=== PATIENT | male | born 1990 | race Caucasian/White ===

== ENCOUNTER 2017-09-26 11:10 | Emergency (ER) | payer OTHER ==
[~2017-09-26] VITALS: Ht 172.7 cm; Wt 73.3 kg
[~2017-09-26 11:10] MED LIST: ascorbic acid PO
[2017-09-26 11:12] VITALS: TEMP 36.8; Ht 172.7 cm; Wt 73.3 kg
--- NOTE | 2017-09-26 11:36 | EMERGENCY ROOM VISIT NOTE ---
History Report prepared by Melissa: Rafael Nelson Under the Supervision of: Dr. Gilbert Mtz M.D. First contact with patient: 11:14 Chief Complaint: REFERRED BY DOCTOR Stated Complaint: SORENESS IN LEFT LEG History of Present Illness The majority of this history was acquired from the mother as the patient is deaf. The patient is a 26 year old male who presents to the Emergency Room with complaints of pain in the left leg. The mother notes that the patient has been complaining of pain in the left calf for the past "couple of weeks." The symptoms have been seeming to wax and wane, but there was an acute worsening over the past 2 days. He describes the pain as a "soreness." The patient denies any injuries to the leg but notes that he went rafting with some friends and had the left leg hanging over the edge of the raft for an extended time. The patient denies any chest pain, shortness of breath, headache, or fevers. Source of History: patient Onset: 2 weeks Position: leg (left) Quality: other (Soreness) Timing: waxes/wanes, worsening Associated Symptoms: No chest pain, No SOB Review of Systems See HPI for pertinent positives & negatives. A total of 10 systems reviewed and were otherwise negative. Past Medical & Surgical Medical Problems: (1) Hearing impaired with cochlear implant Old medical records were reviewed. Nurse's notes were reviewed and I agree with. Family History Father has Factor X Leiden. Social History Smoking Status: Never Smoker Marital Status: single Current/Historical Medications No Active Prescriptions or Reported Meds Allergies Coded Allergies: No Known Allergies (Unverified , 09/26/17) Physical Exam Vital Signs Date Time Temp Pulse Resp B/P (MAP) Pulse Ox O2 Delivery O2 Flow Rate FiO2 09/26/17 13:01 56 18 140/76 97 Room Air 09/26/17 11:12 36.8 64 18 102/68 100 Room Air Physical Exam General: Non-ill appearing young male in no acute distress. HEENT: Normal cephalic atraumatic. Pupils are equal round and reactive to light. Extraocular movements are intact. Oropharynx is pink with moist mucous membranes. No swelling of the mouth lips or tongue. Neck: Supple with a midline trachea. No meningeal signs or stiffness, no JVD or bruits. No Stridor. Chest: Clear to auscultation bilaterally. No wheezes or rhonchi. No increased work of breathing. Heart: regular rate and rhythm. Abdomen: Soft nontender, nondistended without rebound guarding or rigidity. Extremities: The left calf is mildly tender proximally near the popliteal fossa , no redness or warmth. Normal pulses and motor sensation in the foot. Spine/Back. Non tender to palpation. No CVA tenderness Skin: Good turgor without rashes. Neurologic exam: Cranial nerves two through 12 are intact. Motor and sensation are intact and symmetrical throughout. Medical Decision & Procedures ER Provider Diagnostic Interpretation: Radiology results as stated below per my review and radiologist interpretation: LEFT LOWER EXTREMITY VENOUS DOPPLER HISTORY: Left leg swelling. eval for DVT COMPARISON STUDY: None. FINDINGS: There is normal compressibility, flow, and augmentation within the left lower extremity deep venous system. There is thrombus seen within the lesser saphenous vein within the calf. This is consistent with a superficial vein. IMPRESSION: No DVT within the left lower extremity. Thrombus within the lesser saphenous vein within the calf consistent with a superficial vein. Electronically signed by: Harpreet Ramirez M.D. 09/26/2017 12:43 PM Dictated Date/Time: 09/26/2017 12:42 PM Laboratory Results 09/26/17 11:35 Red Blood Count 5.66, Mean Corpuscular Volume 85.0, Mean Corpuscular Hemoglobin 31.1, Mean Corpuscular Hemoglobin Concent 36.6, Mean Platelet Volume 8.9, Neutrophils (%) (Auto) 64.2, Lymphocytes (%) (Auto) 26.7, Monocytes (%) (Auto) 5.5, Eosinophils (%) (Auto) 3.0, Basophils (%) (Auto) 0.4, Neutrophils # (Auto) 3.59, Lymphocytes # (Auto) 1.49, Monocytes # (Auto) 0.31, Eosinophils # (Auto) 0.17, Basophils # (Auto) 0.02 09/26/17 11:35 Test 09/26/17 11:35 White Blood Count 5.59 K/uL (4.8-10.8) Red Blood Count 5.66 M/uL (4.7-6.1) Hemoglobin 17.6 g/dL (14.0-18.0) Hematocrit 48.1 % (42-52) Mean Corpuscular Volume 85.0 fL (80-100) Mean Corpuscular Hemoglobin 31.1 pg (25-34) Mean Corpuscular Hemoglobin Concent 36.6 g/dl (32-36) Platelet Count 215 K/uL (130-400) Mean Platelet Volume 8.9 fL (7.4-10.4) Neutrophils (%) (Auto) 64.2 % Lymphocytes (%) (Auto) 26.7 % Monocytes (%) (Auto) 5.5 % Eosinophils (%) (Auto) 3.0 % Basophils (%) (Auto) 0.4 % Neutrophils # (Auto) 3.59 K/uL (1.4-6.5) Lymphocytes # (Auto) 1.49 K/uL (1.2-3.4) Monocytes # (Auto) 0.31 K/uL (0.11-0.59) Eosinophils # (Auto) 0.17 K/uL (0-0.5) Basophils # (Auto) 0.02 K/uL (0-0.2) RDW Standard Deviation 40.7 fL (36.4-46.3) RDW Coefficient of Variation 13.1 % (11.5-14.5) Immature Granulocyte % (Auto) 0.2 % Immature Granulocyte # (Auto) 0.01 K/uL (0.00-0.02) Prothrombin Time 10.1 SECONDS (9.0-12.0) Prothromb Time International Ratio 1.0 (0.9-1.1) Activated Partial Thromboplast Time 24.6 SECONDS (21.0-31.0) Partial Thromboplastin Ratio 0.9 Anion Gap 4.0 mmol/L (3-11) Est Creatinine Clear Calc Drug Dose 115.2 ml/min Estimated GFR () 129.2 Estimated GFR (Non- 111.5 BUN/Creatinine Ratio 10.4 (10-20) Calcium Level 9.4 mg/dl (8.5-10.1) Laboratory studies as stated above per my review. Medications Administered Medications (Trade) Dose Ordered Sig/Jac Route Start Time Stop Time Status Last Admin Dose Admin Aspirin (Aspirin Chew) 324 mg NOW STAT PO 09/26/17 13:10 09/26/17 13:11 DC 09/26/17 13:10 324 MG ED Course 1115: Past medical records reviewed. The patient was evaluated in room A10, and a complete history and physical examination were performed. 1310: Ordered Aspirin 324 mg PO. 1318: Upon reevaluation, the patient is resting in bed. I discussed the results and treatment plan with him. He verbalized agreement of the treatment plan. The patient was discharged home. Medical Decision Differential Diagnosis includes; DVT, Singh's Cyst, musculoskeletal, infection. This patient comes in as described above. He was placed in room A-10. He has been having pain in his left posterior leg in the proximal calf about 2 weeks, it comes and goes. No known injury. He is asymptomatic otherwise. He has had no chest pain, shortness breath, or fever chills. On exam, there is no redness or warmth or anything to suggest cellulitis. He is distally neurovascularly intact. there is nothing to suggest compartment syndrome. IV access established blood work was obtained he also did an ultrasound to rule out DVT. He was reassessed frequently I discussed his care with his mother who is at the bedside as well. There is no white count or fever to suggest infection and clinically he does not appear to be infected. He has normal renal function. Nothing to suggest diabetes. Ultrasound shows no evidence of DVT. There is a clot in the superficial vein consistent with superficial thrombophlebitis. He will use warm compresses. I will also have him use aspirin for anti- inflammatory effect and also given his family history of factor V Leiden. He should take this with food as it can be hard in the stomach. Follow-up with the [facility] this coming week and if the symptoms persist he may need a further ultrasound. I also recommend he get genetic testing for factor V Leiden. He should return if: increasing pain or swelling, shortness of breath, fever or chills, any new problems or concerns. The patient and his mother are happy the plan and he was discharged to home. Medication Reconcilliation Current Medication List: was personally reviewed by me Blood Pressure Screening Patient's blood pressure: Normal blood pressure Impression Primary Impression: Superficial thrombophlebitis Additional Impression: Pain of left calf Scribe Attestation The scribe's documentation has been prepared under my direction and personally reviewed by me in its entirety. I confirm that the note above accurately reflects all work, treatment, procedures, and medical decision making performed by me. Departure Information Dispostion Home / Self-Care Prescriptions No Active Prescriptions or Reported Meds Referrals No Doctor, Assigned (PCP) Forms HOME CARE DOCUMENTATION FORM, IMPORTANT VISIT INFORMATION, WORK / SCHOOL INSTRUCTIONS Patient Instructions My [facility] HASH Additional Instructions Rest. Drink plenty of fluids. Use a warm compress. Take an aspirin a day 325 mg until you follow-up with your doctor this coming week. Take with food Follow-up with the [facility] this week You may want to consider getting tested for factor V Leiden as well as it runs in the family Return to the ER if: Increasing pain or swelling, redness or warmth, shortness of breath, any new problems or concerns. Problem Qualifiers
[2017-09-26 11:49] LABS: BASO % 0.4 %; BASO ABS # 0.02 K/uL (0-0.2); EOS ABS # 0.17 K/uL (0-0.5); HEMATOCRIT 48.1 % (42-52); HEMOGLOBIN 17.6 g/dL (14.0-18.0); IG# 0.01 K/uL (0.00-0.02); LYMPH % 26.7 %; LYMPH ABS # 1.49 K/uL (1.2-3.4); MEAN CORPUSCULAR HEMOGLOBIN 31.1 pg (25-34); MEAN CORPUSCULAR HGB CONC 36.6 g/dl (32-36); MEAN PLATELET VOLUME 8.9 fL (7.4-10.4); MONO % 5.5 %; MONO ABS # 0.31 K/uL (0.11-0.59); NEUT % 64.2 %; NEUT ABS # 3.59 K/uL (1.4-6.5); PLATELET COUNT 215 K/uL (130-400); RED CELL DISTRIBUTION WIDTH CV 13.1 % (11.5-14.5); RED CELL DISTRIBUTION WIDTH SD 40.7 fL (36.4-46.3); WHITE BLOOD COUNT 5.59 K/uL (4.8-10.8)
[2017-09-26 11:58] LABS: PTT PATIENT 24.6 SECONDS (21.0-31.0)
[2017-09-26 12:10] LABS: CALCIUM 9.4 mg/dl (8.5-10.1); CREATININE 0.94 mg/dl (0.60-1.40)
--- NOTE | 2017-09-26 12:45 | DIAGNOSTIC IMAGING REPORT ---
LEFT LOWER EXTREMITY VENOUS DOPPLER HISTORY: Left leg swelling. eval for DVT COMPARISON STUDY: None. FINDINGS: There is normal compressibility, flow, and augmentation within the left lower extremity deep venous system. There is thrombus seen within the lesser saphenous vein within the calf. This is consistent with a superficial vein. IMPRESSION: No DVT within the left lower extremity. Thrombus within the lesser saphenous vein within the calf consistent with a superficial vein. Electronically signed by: Harpreet Ramirez M.D. 09/26/2017 12:43 PM Dictated Date/Time: 09/26/2017 12:42 PM
[2017-09-26 13:01] VITALS: BP 140/76; PULSE 56; O2SAT 97
[2017-09-26] MEDS ORDERED: ASPIRIN 81 MG CHEW PO STA (13:10)
== END 2017-09-26 13:21 | disposition home or self-care (01) ==
LOC: C.EDB 11:10 → C.EDA 13:21
DX: I80.02 Phlebitis and thrombophlebitis of superficial vessels of left lower extremity (principal); M79.662 Pain in left lower leg

== ENCOUNTER 2024-12-04 14:18 | Observation (INO) ==
[2024-12-04 15:21] LABS: Hematocrit (blood only) 47.3 % (42.0-52.0); Hemoglobin 16.1 g/dl (14.0-18.0); Immature Granulocytes # (auto) 0.04 K/uL (0.01-0.20); Immature Granulocytes % (auto) 0.7 %; Mean Corpuscular Hemoglobin 28.9 pg (25.0-34.0); Mean Corpuscular Volume 84.9 fL (80.0-100.0); Platelet Count 260 K/uL (130-400); RDW Standard Deviation 39.6 fL (36.4-46.3); Red Blood Count 5.57 M/uL (4.70-6.10); White Blood Count 6.12 K/ul (4.8-10.8)
[2024-12-04] MEDS: OPTIRAY 320 125ml IV ONE (15:30)
[2024-12-04 15:36] LABS: Anion Gap 9.0 (3-11); Blood Urea Nitrogen 11.0 mg/dl (6-23); Calcium 10.1 mg/dl (8.6-10.3); Carbon Dioxide 28.0 mmol/L (21-32); Chloride 102.0 mmol/L (98-107); Glucose 152.0 mg/dl (70-99(Fasting)); Lipase 11.0 U/L (11-82); Potassium 3.9 mmol/L (3.5-5.1); Sodium 139.0 mmol/L (136-145)
--- NOTE | 2024-12-04 15:46 | CT Scan Report ---
CT ANGIOGRAM OF THE CHEST CLINICAL HISTORY: Chest pain. COMPARISON STUDY: Chest x-ray dated 07/06/2012. Chest CT dated 07/06/2012. TECHNIQUE: Following the IV administration of 118 cc of Optiray 320, CT angiogram of the chest was pe rformed from the upper abdomen to the thoracic inlet utilizing the pulmonary embolus protocol. Images are reviewed in the axial, sagittal, and coronal planes. 3-D MIPS images are created and assessed. I V contrast was administered without complication. A dose lowering technique was utilized adhering to the principles of ALARA. The examination is degraded by motion artifact. CT DOSE: 556.69 mGy.cm FINDINGS: Thyroid: Imaged portions of the thyroid gland are normal in size and attenuation. Thoracic aorta: The thoracic aorta is normal in caliber and demonstrates standard 3-vessel arch anato my. No dissection is seen. Pulmonary vasculature: The pulmonary trunk is normal in caliber. There are no central filling defects identified in main or lobar pulmonary branches to suggest pulmonary embolus. The segmental and subse gmental branches cannot be assessed due to severe motion artifact. Heart: The heart is normal in size and without pericardial effusion. Lungs and pleural spaces: Evaluation of the lung parenchyma is significantly degraded by motion artif act. No airspace consolidation or pleural effusion is identified. The trachea and central airways valentina ear clear. Atelectasis is noted at the lung bases. There are several calcified granulomas. Mediastinum: There is no mediastinal lymphadenopathy. Oliva: Clear. Axillae: There is no axillary lymphadenopathy. Upper abdomen: Partially visualized upper abdominal viscera is within normal limits. Skeletal structures: No lytic or blastic bony lesions are seen. IMPRESSION: 1. Severely motion compromised examination. 2. There is no evidence of central pulmonary embolus in the main or lobar pulmonary arteries. The seg mental and subsegmental branches cannot be assessed due to the degree of motion 3. No airspace consolidation or pleural effusion is identified. 4. Additional findings as above. ACT 112: Negative or not required by law. Electronically signed by: Adalberto Doe M.D. 12/04/2024 3:45 PM
[2024-12-04 15:48] LABS: INR 0.9 (0.9-1.1); Partial Thromboplastin Time 23 Seconds (21-31); Prothrombin Time 10.0 Seconds (9.0-12.0)
[2024-12-04 16:01] LABS: Creatinine Clr Calc Pharmacy 121.0 ml/min
--- NOTE | 2024-12-04 16:11 | History & Physical Report ---
<Statement entered by Bennie Augustin, DO - 12/06/24 09:14> Late note: I have seen and examined the patient and have discussed the case with the advance practice provider on the day of admission. I have reviewed the advanced practitioner's documentation, and I agree with, and take responsibility for that plan of care. History obtained from his mother at the bedside. Seems as though patient has been having swelling and pain in the left leg for a few months. Ultrasound lower extremity done in outpatient setting. Patient's father has hypercoagulable state. Send hypercoagulable state panel Transition to Eliquis. Did discuss with the patient's mother pros and cons of Eliquis versus warfarin. The patient's father was on warfarin. Mother was agreeable to at least the first month of Eliquis and determining if they would want to continue that medication versus transition to warfarin. They may need to apply for supervisor fusing room assistance for cost of Eliquis. However, between lab costs for warfarin the cost may be somewhat equivalent I spent a total of 20 minutes coordinating, documenting, and providing care for this patient excluding time spent by another provider/QHP. Date of Service December 04, 2024 Assessment & Plan (1) DVT (deep venous thrombosis): Plan: Patient is a 34 year old M with a past medical history of anxiety, pericarditis, rubella with defects, hearing impaired with cochlear implant, presenting with left lower extremity swelling. Symptoms began several weeks ago with left leg swelling and pain w/o ambulation difficulty. No fevers or reported injury to left leg. Was seen by [facility] in [place] and treated with antibiotics for suspected cellulitis. Patient returned to Dr[facility] 1-2 week ago d/t no improvement, left leg pain persisted. Then prescribed Doxycycline w/ last dose given 11/30. Went to primary care follow-up at [facility] today, per Dr[facility] for ultrasound follow-up after antibiotics, Doppler showing DVT from femoral- popliteal. DVT, acute * Admit for observation for acute DVT * LLE swelling w/ leg pain, no anticoagulation outpatient; family history Factor V Leiden (father) * Doppler completed [facility] at PCP follow-up showing large DVT femoral to popliteal; sent here for treatment * Chest CTA showing no evidence of central pulmonary embolus in the main or lobar pulmonary arteries * Family history Factor V Leiden w/ no outpatient workup; hypercoagulable workup ordered and pending * Heparin bolus given in ED; Heparin gtts stopped; Eliquis 10 mg BID started today * Case Management- Patient w/o insurance and receives medical care via [facility]; plan to d/c with Eliquis and will need financial assistance, poss coupon for outpatient meds #Hypertension * BP elevated in ED 180/91; has been off Amlodipine x 1 month * Was hospitalized at [facility], started on amlodipine and not given refills * Amlodipine 10 mg daily started-> resume daily dosing tomorrow * Goal BP 130/80 #Anxiety * Follows psychiatry outpatient * Started on clonidine by psychiatry for BP management- continue * 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 Augustin. Please see addendum.I spent a total of 60 minutes coordinating, documenting and providing care for this patient excluding time spent in the performance of separately billed services or time spent by another provider/QHP. (2) Hypertension: (3) Anxiety: History of Present Illness Primary Care Provider: NO PCP Patient is a 34 year old M with a past medical history of anxiety, pericarditis, rubella with defects, hearing impaired with cochlear implant, presenting with left lower extremity swelling. Symptoms began several weeks ago with left leg swelling and pain w/o ambulation difficulty. No fevers or reported injury to left leg. Was seen by [facility] in [place] and treated with antibiotics for suspected cellulitis. Patient returned to Dr. [facility] 1-2 week ago d/t no improvement, left leg pain persisted. Then prescribed Doxycycline w/ last dose given 11/30. Went to primary care follow-up at [facility] today, per Dr. [facility] for ultrasound follow-up after antibiotics, Doppler showing DVT from femoral- popliteal. Denies fever, chills, weight loss, weakness, headache, cognitive changes, vision/hearing changes, chest pain, SOB, difficulty breathing, urinary concerns, N/V/D, joint swelling/pain, ambulation difficulty, skin lesions, bleeding, bruising. In the emergency department, patient was hypertensive 180/91 with tachycardia to 116. EKG showing sinus tachycardia with vent rate 122 bpm, QTc 410. No fevers or signs of sepsis. Labs unremarkable. Left lower leg edematous. Chest CTA without evidence PE. Heparin bolus and infusion was initially started and then discontinued by hospital medical team. Patient's family has history of Factor V Leiden with no workup in the past. Eliquis was started in the ED with pending hypercoagulable workup. Mother at bedside and reporting patient was admitted to [facility] in September 2024 for a mental health crisis. As per external chart review the patient had ambulatory dysfunction, generalized malaise, lethargy, intermittent chest pain, and reported syncopal episode which brought him to the emergency room in [place] on 09/26/24. He was found to have acute pericarditis and a new diagnosis of hypertension. Lyme negative. TTE was obtained without significant findings and normal LVEF 60%. During that admission, the patient had leg pain, but there was no evidence of DVT at that time. The leg pain briefly improved and then resumed once home. During that hospitalization, he was found to have pericarditis, treated and d/c to home with colchicine. Due to not having refills on the medication, the patient did not continue this medication. Also found to be hypertensive that admission and started on amlodipine, which was also not continued d/t no refills. History obtained primarily from the patient and via hospitalization record. 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 Patient understands reasons for hospitalization and can answer questions for review of systems. Patient is [facility] with no health insurance and will need case management to follow to assist with outpatient follow-up and financial assistance for medications. Given patient's cognitive delay and impaired hearing, the family has requested for a family member to be able to stay at bedside to help with patient's needs. Allergies Allergy/AdvReac Type Severity Reaction Status Date / Time No Known Allergies Allergy Unverified 12/04/24 16:10 Home Medications Medication Instructions Recorded Confirmed Type clonidine HCl 0.1 mg tablet 0.1 mg PO HS 12/04/24 12/04/24 History quetiapine 50 mg tablet 50 mg PO HS 12/04/24 12/04/24 History Past Med/Surg History Problem List (Updated 12/04/24 @ 18:45 by Carl Ervin MD) Anxiety Hypertension DVT (deep venous thrombosis) (Acute) Medical History (Updated 12/04/24 @ 18:45 by Carl Ervin MD) Rubella Cochlear implant in place Pericarditis Social History Smoking Status: Never smoker Feels Safe at Home: Yes Review of Systems Review of Systems: All systems reviewed & are unremarkable except as noted in HPI & below Physical Exam Physical Exam: VITALS: Reviewed. WEIGHT/BMI reviewed. GEN: Healthy appearing, well-developed, NAD. PSYCH: Good Judgment. AOx3. Normal memory, mood, and affect. HEENT -Head: NC/AT; -Eyes: PERRL, EOMI. No discharge or redn ess; -Ears: External ears are normal. Cochlea r implant intact -Nose: Normal nares. -Mouth and throat: MMM. Normal gums, muc tavares, palate,. Good dentition. NECK: Supple, with no masses. CV: Tachycardia to 116, S1, S2 without murmur. LLE pitting edema. +1 pedal pulse. LUNGS: CTAB, no w/r/c. ABD: Soft, NT/ND, NBS, no masses or organomegaly. : N/A SKIN: Warm, well perfused. pinpoint red rash to medial left ankle. MSK: No deformities, Normal gait. EXT: No clubbing, cyanosis, or edema. NEURO: Ambulating with no limitations. Normal muscle strength and tone. No focal deficits. Results & Data Results & Data Vital Signs (Past 12 Hours) Vital Signs Temp Pulse Pulse Resp BP BP Pulse Ox 12/04/24 15:38 113 H 22 194/103 H 97 12/04/24 15:18 103 H 20 98 12/04/24 15:05 122 H 12/04/24 14:24 36.8 C 105 H 20 183/88 H 99 O2 Del Method 12/04/24 15:38 Room Air 12/04/24 15:18 Room Air 12/04/24 15:05 12/04/24 14:24 Room Air Laboratory Results Short CBC 12/04/24 Range/Units 15:07 WBC 6.12 (4.8-10.8) K/ul Hgb 16.1 (14.0-18.0) g/dl Hct 47.3 (42.0-52.0) % Plt Count 260 (130-400) K/uL BMP 12/04/24 15:07 Sodium 139 Potassium 3.9 Chloride 102 Carbon Dioxide 28 BUN 11 Creatinine 0.86 Glucose 152 H Calcium 10.1 Diagnostic Findings Chest CTA 12/04/24 14:40 CT ANGIOGRAM OF THE CHEST CLINICAL HISTORY: Chest pain. COMPARISON STUDY: Chest x-ray dated 07/06/2012. Chest CT dated 07/06/2012. TECHNIQUE: Following the IV administration of 118 cc of Optiray 320, CT a ngiogram of the chest was performed from the upper abdomen to the thoracic inlet utilizing the pulmonary embolus protocol. Images are reviewed in the axial, sagittal, and coronal planes. 3-D MIPS images are created and assessed. IV contrast was administered without complication. A dose lowering technique was utilized adhering to the principles of ALARA. The examination is degraded by motion artifact. CT DOSE: 556.69 mGy.cm FINDINGS: Thyroid: Imaged portions of the thyroid gland are normal in size and attenuation. Thoracic aorta: The thoracic aorta is normal in caliber and demonstrates standard 3-vessel arch anatomy. No dissection is seen. Pulmonary vasculature: The pulmonary trunk is normal in caliber. There are no central filling defects identified in main or lobar pulmonary branches to suggest pulmonary embolus. The segmental and subsegmental branches cannot be assessed due to severe motion artifact. Heart: The heart is normal in size and without pericardial effusion. Lungs and pleural spaces: Evaluation of the lung parenchyma is significantly degraded by motion artifact. No airspace consolidation or pleural effusion is identified. The trachea and central airways appear clear. Atelectasis is noted at the lung bases. There are several calcified granulomas. Mediastinum: There is no mediastinal lymphadenopathy. Oliva: Clear. Axillae: There is no axillary lymphadenopathy. Upper abdomen: Partially visualized upper abdominal viscera is within normal limits. Skeletal structures: No lytic or blastic bony lesions are seen. IMPRESSION: 1. Severely motion compromised examination. 2. There is no evidence of central pulmonary embolus in the main or lobar pulmonary arteries. The segmental and subsegmental branches cannot be assessed due to the degree of motion 3. No airspace consolidation or pleural effusion is identified. 4. Additional findings as above. ACT 112: Negative or not required by law. Electronically signed by: Adalberto Doe M.D. 12/04/2024 3:45 PM
[2024-12-04] MEDS: HEPARIN SOD (PORCINE) 1000 UNIT/ML IV ONE ×2 (16:31→16:44)
[2024-12-04] MEDS: Heparin IV Adult Wt-Based Standard w/ INITIAL Bolus Protocol IV STA (16:31)
[2024-12-04] MEDS: HEPARIN 25000 UNIT/500 ML D5W 25,000 UNITS/500 ML BAG IV SCH (16:38)
--- NOTE | 2024-12-04 18:46 | Emergency Department Note ---
History of Present Illness General Chief Complaint: Referred by Doctor Stated Complaint: BC DOC REFERRAL Time Seen by Provider: 12/04/24 14:30 History of Present Illness Provider Complaint: + abnormal lab Returns today for: + called because of abnormal lab/test Description of abnormal result: Ultrasound lower left extremity positive for DVT. Associated symptoms: + other (Leg swelling.); no chest pain, no shortness of breath or no abdominal pain Home Medications Medication Instructions Recorded Confirmed Type clonidine HCl 0.1 mg tablet 0.1 mg PO HS 12/04/24 12/04/24 History quetiapine 50 mg tablet 50 mg PO HS 12/04/24 12/04/24 History Allergies Allergy/AdvReac Type Severity Reaction Status Date / Time No Known Allergies Allergy Unverified 12/04/24 16:10 Past Med/Surg History Problem List (Updated 12/04/24 @ 18:45 by Carl Ervin MD) Anxiety Hypertension DVT (deep venous thrombosis) (Acute) Medical History (Updated 12/04/24 @ 18:45 by Carl Ervin MD) Rubella Cochlear implant in place Pericarditis Social History Smoking Status: Never smoker Feels Safe at Home: Yes Physical Exam 2 Vital Signs: Vital Signs - 24 hr 12/04/24 14:24 12/04/24 15:05 12/04/24 15:18 Temperature 36.8 C Temperature Source Skin Pulse Rate 105 H 122 H 103 H Pulse Rate [Apical ] Pulse Rhythm Regular Pulse Rhythm [Apic al] Pulse Strength [Ap ical] Respiratory Rate 20 20 Respiratory Effort / Characteristics Non-Labored Sponta neous Respiratory Depth Normal Respiratory Patter n Regular Blood Pressure 183/88 H Blood Pressure [Le ft Arm] Blood Pressure Samreen n 119 Blood Pressure Samreen n [Left Arm] Pulse Oximetry 99 98 Oxygen Delivery Me thod Room Air Room Air Sepsis Recent Feve r Within 48 Hours No Sepsis New/Unexpla ined Change in Men evans Status N/A Sepsis Action Take n by Nursing No Action Required 12/04/24 15:38 12/04/24 15:38 12/04/24 16:00 Temperature Temperature Source Pulse Rate 114 H 116 H Pulse Rate [Apical ] 113 H Pulse Rhythm Pulse Rhythm [Apic al] Pulse Strength [Ap ical] Respiratory Rate 22 30 H 34 H Respiratory Effort / Characteristics Respiratory Depth Respiratory Patter n Blood Pressure 194/103 H 180/91 H Blood Pressure [Le ft Arm] 194/103 H Blood Pressure Samreen n 138 125 Blood Pressure Samreen n [Left Arm] 133 Pulse Oximetry 97 98 96 Oxygen Delivery Me thod Room Air Room Air Room Air Sepsis Recent Feve r Within 48 Hours Sepsis New/Unexpla ined Change in Men evans Status Sepsis Action Take n by Nursing 12/04/24 17:37 12/04/24 18:00 Temperature Temperature Source Pulse Rate Pulse Rate [Apical ] 112 H 115 H Pulse Rhythm Pulse Rhythm [Apic al] Regular Regular Pulse Strength [Ap ical] Normal Normal Respiratory Rate 30 H 26 H Respiratory Effort / Characteristics Non-Labored Sponta neous Non-Labored Sponta neous Respiratory Depth Normal Normal Respiratory Patter n Regular Blood Pressure Blood Pressure [Le ft Arm] 179/93 H 158/86 H Blood Pressure Samreen n Blood Pressure Samreen n [Left Arm] 121 110 Pulse Oximetry 97 97 Oxygen Delivery Me thod Room Air Room Air Sepsis Recent Feve r Within 48 Hours Sepsis New/Unexpla ined Change in Men evans Status Sepsis Action Take n by Nursing Physical Exam: Physical Exam NECK: Normal range of motion. Neck supple. No JVD present. CV: Normal rate, regular rhythm, normal heart sounds and intact distal pulses. There is no peripheral edema. Palpable radial pulses bue. PULM/CHEST: Effort normal and breath sounds normal. No respiratory distress. No stridor. no wheezes. no rales. MUSC: Left lower extremity swollen and tender to palpation of the posterior calf when compared to the right lower extremity. Palpable DP and PT pulses bilaterally. NEURO: Motor and sensation grossly intact. Course Course 1430: The patient was evaluated in room A4. A complete history and physical exam was performed Cardiac monitoring: An order was placed for continuous cardiac monitoring. The monitor shows a rate of 120 with sinus tachycardia rhythm interpreted by me 1450: External medical records reviewed. Betty casework manager was able to obtain the ultrasound results from [facility] today which showed a left lower extremity DVT with a thrombosis of the left deep femoral vein thrombosis of left femoral vein thrombosis of the infrageniculate veins and popliteal vein. Discussed these findings with Gracie Sears anticoagulation PA who works with Dr. Langley. After discussion with Gracie, we thought to be best to make sure the patient does not have PE given this high of a clot burden and start the patient on heparin. 1550: Vital signs stable. CTA of chest negative for PE. Troponin negative. [facility]. Administered Medications Discontinued Medications Amlodipine Besylate (Amlodipine Besylate 5 Mg Tab) 10 mg PO NOW ONE Stop: 12/04/24 16:52 Last Admin: 12/04/24 17:38 Dose: 10 mg Documented By: homa Heparin Sodium (Porcine) (Heparin Sod (Porcine) 1000 Unit/Ml) 1 units IV NOW ONE Stop: 12/04/24 16:04 Last Admin: 12/04/24 16:31 Dose: Not Given Documented By: DAY Heparin Sodium (Porcine) (Heparin Sod (Porcine) 1000 Unit/Ml) 6,000 units IV NOW ONE Stop: 12/04/24 16:41 Last Admin: 12/04/24 16:44 Dose: 6,000 units Documented By: DAY Co-signed By: homa Heparin Sodium/Dextrose (Heparin Iv Adult Wt-Based Standard W/ Initial Bolus Protocol) 1 each IV NOW STA; Protocol Stop: 12/04/24 15:49 Last Admin: 12/04/24 16:31 Dose: Not Given Documented By: DAY Heparin Sodium/Dextrose (Heparin 17683 Unit/500 Ml D5w) 25,000 units in 500 mls @ 27 mls/hr IV .[id number]; Protocol Stop: 01/03/25 16:14 Last Titration: 12/04/24 18:15 Dose: Infused Documented By: DAY Co-signed By: homa Admin: 12/04/24 16:38 Dose: 1,350 units/hr, 27 mls/hr Documented By: homa Co-signed By: DAY Ioversol (Optiray 320 125ml) 118 ml IV ONCE ONE Stop: 12/04/24 15:30 Last Admin: 12/04/24 15:30 Dose: 118 ml Documented By: WEI Medical Decision Making Laboratory Data Attestation: I reviewed the patient's lab results. 12/04/24 15:07 12/04/24 15:07 Lab Results 12/04/24 12/04/24 Range/Units 15:07 15:09 WBC 6.12 (4.8-10.8) K/ul RBC 5.57 (4.70-6.10) M/uL Hgb 16.1 (14.0-18.0) g/dl POC Hgb 16.3 (14.0-18.0) g/dl Hct 47.3 (42.0-52.0) % POC Hct 48 (42-52) % MCV 84.9 (80.0-100.0) fL MCH 28.9 (25.0-34.0) pg MCHC 34.0 (32.0-36.0) g/dL RDW Std Deviation 39.6 (36.4-46.3) fL RDW Coeff of [place] 12.9 (11.5-14.5) % Plt Count 260 (130-400) K/uL MPV 8.8 L (9.4-12.4) fL Immature Gran % (Auto) 0.7 % Neut % (Auto) 75.1 % Lymph % (Auto) 16.0 % [place] % (Auto) 5.2 % Eos % (Auto) 2.3 % Baso % (Auto) 0.7 % Neut # (Auto) 4.60 (1.40-6.50) K/uL Lymph # (Auto) 0.98 L (1.20-3.40) K/uL [place] # (Auto) 0.32 (0.11-0.59) K/uL Eos # (Auto) 0.14 (0.00-0.50) K/uL Baso # (Auto) 0.04 (0.00-0.20) K/uL Immature Gran # (Auto) 0.04 (0.01-0.20) K/uL PT 10.0 (9.0-12.0) Seconds INR 0.9 (0.9-1.1) APTT 23 (21-31) Seconds PTT Ratio 0.8 POC Sodium 139 (135-144) mmol/L Sodium 139 (136-145) mmol/L POC Potassium 4.0 (3.3-5.0) mmol/L Potassium 3.9 (3.5-5.1) mmol/L POC Chloride 100 L (101-112) mmol/L Chloride 102 (98-107) mmol/L Carbon Dioxide 28 (21-32) mmol/L POC Total CO2 26 (24-31) mmol/L Anion Gap 9 (3-11) POC Anion Gap 19.0 (16-25) mmol/L POC BUN 10 (7-18) mg/dl BUN 11 (6-23) mg/dl Creatinine 0.86 (0.6-1.4) mg/dl POC Creatinine 1.0 (0.6-1.3) mg/dl Est Cr Clr Drug Dosing 121.0 ml/min eGFR 116.52 BUN/Creatinine Ratio 12.8 (10-20) Glucose 152 H (70-99(Fasting)) mg/dl POC Glucose (other) 153 H (70-99) mg/dl Calcium 10.1 (8.6-10.3) mg/dl POC Ioniz Calcium Quintin 1.27 (1.12-1.32) mmol/l Troponin I High Sens 4.3 (0-20) pg/ml Lipase 11 (11-82) U/L Imaging Data Radiologist's Impression: Chest CTA 12/04/24 14:40 CT ANGIOGRAM OF THE CHEST CLINICAL HISTORY: Chest pain. COMPARISON STUDY: Chest x-ray dated 07/06/2012. Chest CT dated 07/06/2012. TECHNIQUE: Following the IV administration of 118 cc of Optiray 320, CT angiogram of the chest was performed from the upper abdomen to the thoracic inlet utilizing the pulmonary embolus protocol. Images are reviewed in the axial, sagittal, and coronal planes. 3-D MIPS images are created and assessed. IV contrast was administered without complication. A dose lowering technique was utilized adhering to the principles of ALARA. The examination is degraded by motion artifact. CT DOSE: 556.69 mGy.cm FINDINGS: Thyroid: Imaged portions of the thyroid gland are normal in size and attenuation. Thoracic aorta: The thoracic aorta is normal in caliber and demonstrates standard 3-vessel arch anatomy. No dissection is seen. Pulmonary vasculature: The pulmonary trunk is normal in caliber. There are no central filling defects identified in main or lobar pulmonary branches to suggest pulmonary embolus. The segmental and subsegmental branches cannot be assessed due to severe motion artifact. Heart: The heart is normal in size and without pericardial effusion. Lungs and pleural spaces: Evaluation of the lung parenchyma is significantly degraded by motion artifact. No airspace consolidation or pleural effusion is identified. The trachea and central airways appear clear. Atelectasis is noted at the lung bases. There are several calcified granulomas. Mediastinum: There is no mediastinal lymphadenopathy. Oliva: Clear. Axillae: There is no axillary lymphadenopathy. Upper abdomen: Partially visualized upper abdominal viscera is within normal limits. Skeletal structures: No lytic or blastic bony lesions are seen. IMPRESSION: 1. Severely motion compromised examination. 2. There is no evidence of central pulmonary embolus in the main or lobar pulmonary arteries. The segmental and subsegmental branches cannot be assessed due to the degree of motion 3. No airspace consolidation or pleural effusion is identified. 4. Additional findings as above. ACT 112: Negative or not required by law. Electronically signed by: Adalberto Doe M.D. 12/04/2024 3:45 PM ECG Data Attestation: I personally reviewed and interpreted this ECG as follows: Rate (beats per minute): 122 Rhythm: sinus tachycardia Findings: no ST depression, no ST elevation or no prolonged QT Additional Comments: QRS 72 MDM Narrative 1430: The patient was evaluated in room A4. A complete history and physical exam was performed Cardiac monitoring: An order was placed for continuous cardiac monitoring. The monitor shows a rate of 120 with sinus tachycardia rhythm interpreted by me 1450: External medical records reviewed. Betty casework manager was able to obtain the ultrasound results from [facility] today which showed a left lower extremity DVT with a thrombosis of the left deep femoral vein thrombosis of left femoral vein thrombosis of the infrageniculate veins and popliteal vein. Discussed these findings with Gracie Sears anticoagulation PA who works with Dr. Langley. After discussion with Gracie, we thought to be best to make sure the patient does not have PE given this high of a clot burden and start the patient on heparin. 1550: Vital signs stable. CTA of chest negative for PE. Troponin negative. Patient was started heparin [facility] Impression & Plan DVT (deep venous thrombosis) Critical Care Time Critical Care Time: Yes Total Critical Care Time: 43 I have personally spent greater than 43 minutes of critical care time in the direct management of this patient. This includes bedside care, interpretation of diagnostic studies, and testing, discussion with consultants, patient, and family members, and other required patient management activities. This 43 minutes is in excess of all separately billable procedures. Discharge Plan Visit Data Chief Complaint: Referred by Doctor Stated Complaint: BC DOC REFERRAL ED Provider: Carl Ervin Discharge Problem: DVT (deep venous thrombosis) Patient Disposition: Admitted As Inpatient Condition: Serious Discharge Instructions Interventions: ED Discharge Assessment Last Done: 12/04/24 18:39 Forms Stand Alone Forms: My [facility] Prescriptions Prescriptions: No Action clonidine HCl 0.1 mg tablet 0.1 mg PO HS quetiapine 50 mg tablet 50 mg PO HS Referrals Referrals: PCP,NO [Primary Care Provider] -
[2024-12-04] MEDS ORDERED: ACETAMINOPHEN 325 MG TAB PO PRN (19:07)
[2024-12-04] MEDS ORDERED: ALUMINUM/MAGNESIUM SUSP 30 ML UDC PO PRN (19:07)
[2024-12-04] MEDS ORDERED: POLYETHYLENE (MIRALAX) 17 GM PACK PO PRN (19:07)
[2024-12-04] MEDS ORDERED: MAGNESIUM HYDROXIDE SUSP 30 ML UDC PO PRN (19:07)
[2024-12-04] MEDS ORDERED: ONDANSETRON INJ 2 MG/ML 2 ML VIAL IV PRN (19:07)
[2024-12-04] MEDS: APIXABAN 5 MG TABLET PO SCH (20:49)
[2024-12-04 22:59] LABS: ANTI-Xa, UFH(UnfractionatedHep < 0.10 IU/ml (0.3-0.7)
[2024-12-05 08:06] LABS: Hematocrit (blood only) 46.0 % (42.0-52.0); Hemoglobin 16.0 g/dl (14.0-18.0); Mean Corpuscular Hemoglobin 29.5 pg (25.0-34.0); Mean Corpuscular Volume 84.9 fL (80.0-100.0); Platelet Count 229 K/uL (130-400); RDW Standard Deviation 40.6 fL (36.4-46.3); Red Blood Count 5.42 M/uL (4.70-6.10); White Blood Count 6.41 K/ul (4.8-10.8)
[2024-12-05 08:21] LABS: Anion Gap 8.0 (3-11); Blood Urea Nitrogen 11.0 mg/dl (6-23); Calcium 9.3 mg/dl (8.6-10.3); Carbon Dioxide 26.0 mmol/L (21-32); Chloride 104.0 mmol/L (98-107); Creatinine Clr Calc Pharmacy 130.8 ml/min; Glucose 104.0 mg/dl (70-99(Fasting)); Magnesium 1.9 mg/dl (1.7-2.4); Potassium 4.1 mmol/L (3.5-5.1); Sodium 138.0 mmol/L (136-145)
--- NOTE | 2024-12-05 13:04 | Hospitalist Progress Note ---
Date of Service December 05, 2024 Assessment & Plan (1) DVT (deep venous thrombosis): Plan: Patient is a 34 year old M with a past medical history of anxiety, pericarditis, rubella with defects, hearing impaired with cochlear implant, presenting with left lower extremity swelling. Symptoms began several weeks ago with left leg swelling and pain w/o ambulation difficulty. No fevers or reported injury to left leg. Was seen by [facility] in [place] and treated with antibiotics for suspected cellulitis. Patient returned to Dr. [facility] 1-2 week ago d/t no improvement, left leg pain persisted. Then prescribed Doxycycline w/ last dose given 11/30. Went to primary care follow-up at [facility], per Dr. [facility] for ultrasound follow-up after antibiotics, Doppler showing DVT from femoral- popliteal. DVT, acute Outpatient Doppler study showed left lower deep vein thrombosis femoral to popliteal +Family history Factor V Leiden (father) --Chest CTA:Severely motion compromised examination. There is no evidence of central pulmonary embolus in the main or lobar pulmonary arteries. The segmental and subsegmental branches cannot be assessed due to the degree of motion. No airspace consolidation or pleural effusion is identified. 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; now with cognitive impairment requiring family support with everyday care Continue home Seroquel DVT Px: Eliquis Code status: Full Code Disposition Home (2) Hypertension: (3) Anxiety: Admission and Anticipated Discharge Date Admission Date: December 04, 2024 Subjective Patient is seen and examined at bedside Poor historian secondary to expressive aphasia, decreased hearing History obtained with the help of patient's family at bedside Denies any leg pain Offers no complaints Denies any chest pain, dyspnea, nausea, vomiting, abdominal pain No bleeding issues Review of Systems Review of Systems: All systems reviewed & are unremarkable except as noted in Subjective Physical Exam Physical Exam: Physical Exam: Vitals signs as noted above General Appearance:Moderately built and nourished, no apparent distress Head: normocephalic, Atraumatic Eyes: normal inspection, EOMI Neck: supple, Trachea midline Respiratory/Chest: Normal breath sounds, CTA, No accessory muscle use Cardiovascular: S1, S2, No murmur Abdomen/GI:Soft, Non tender, Bowel sounds present Extremities/Musculoskeletal:normal inspection, Left LE edema, +warm Neurologic/Psych:Alert, awake, + expressive aphasia, decreased hearing Skin: normal color, warm Results & Data Results & Data Vital Signs (Past 12 Hours) Vital Signs Temp Pulse Resp BP Pulse Ox O2 Del Method 12/05/24 07:17 36.5 C 72 18 120/73 98 Room Air Laboratory Results Short CBC 12/04/24 12/05/24 Range/Units 15:07 07:26 WBC 6.12 6.41 (4.8-10.8) K/ul Hgb 16.1 16.0 (14.0-18.0) g/dl Hct 47.3 46.0 (42.0-52.0) % Plt Count 260 229 (130-400) K/uL BMP 12/04/24 12/05/24 15:07 07:26 Sodium 139 138 Potassium 3.9 4.1 Chloride 102 104 Carbon Dioxide 28 26 BUN 11 11 Creatinine 0.86 0.77 Glucose 152 H 104 H Calcium 10.1 9.3
[2024-12-05 13:31] VITALS: BP 161/77; PULSE 111; RESP 16; TEMP 97.9; O2SAT 97
--- NOTE | 2024-12-05 14:05 | Discharge Summary ---
Date of Service December 05, 2024 Admission HPI Per Admitting Provider Patient is a 34 year old M with a past medical history of anxiety, pericarditis, rubella with defects, hearing impaired with cochlear implant, presenting with left lower extremity swelling. Symptoms began several weeks ago with left leg swelling and pain w/o ambulation difficulty. No fevers or reported injury to left leg. Was seen by Dr[facility] in [place] and treated with antibiotics for suspected cellulitis. Patient returned to Dr. Berger[facility] clinic 1-2 week ago d/t no improvement, left leg pain persisted. Then prescribed Doxycycline w/ last dose given 11/30. Went to primary care follow-up at [facility] today, per Dr. [facility] for ultrasound follow-up after antibiotics, Doppler showing DVT from femoral- popliteal. Denies fever, chills, weight loss, weakness, headache, cognitive changes, vision/hearing changes, chest pain, SOB, difficulty breathing, urinary concerns, N/V/D, joint swelling/pain, ambulation difficulty, skin lesions, bleeding, bruising. In the emergency department, patient was hypertensive 180/91 with tachycardia to 116. EKG showing sinus tachycardia with vent rate 122 bpm, QTc 410. No fevers or signs of sepsis. Labs unremarkable. Left lower leg edematous. Chest CTA without evidence PE. Heparin bolus and infusion was initially started and then discontinued by hospital medical team. Patient's family has history of Factor V Leiden with no workup in the past. Eliquis was started in the ED with pending hypercoagulable workup. Mother at bedside and reporting patient was admitted to [facility] in September 2024 for a mental health crisis. As per external chart review the patient had ambulatory dysfunction, generalized malaise, lethargy, intermittent chest pain, and reported syncopal episode which brought him to the emergency room in [place] on 09/26/24. He was found to have acute pericarditis and a new diagnosis of hypertension. Lyme negative. TTE was obtained without significant findings and normal LVEF 60%. During that admission, the patient had leg pain, but there was no evidence of DVT at that time. The leg pain briefly improved and then resumed once home. During that hospitalization, he was found to have pericarditis, treated and d/c to home with colchicine. Due to not having refills on the medication, the patient did not continue this medication. Also found to be hypertensive that admission and started on amlodipine, which was also not continued d/t no refills. History obtained primarily from the patient and via hospitalization record. 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 Patient understands reasons for hospitalization and can answer questions for review of systems. Patient is Ariel with no health insurance and will need case management to follow to assist with outpatient follow-up and financial assistance for medications. Given patient's cognitive delay and impaired hearing, the family has requested for a family member to be able to stay at bedside to help with patient's needs. Admission Exam Per Admitting Provider VITALS: Reviewed. WEIGHT/BMI reviewed. GEN: Healthy appearing, well-developed, NAD. PSYCH: Good Judgment. AOx3. Normal memory, mood, and affect. HEENT -Head: NC/AT; -Eyes: PERRL, EOMI. No discharge or redness; -Ears: External ears are normal. Cochlear implant intact -Nose: Normal nares. -Mouth and throat: MMM. Normal gums, mucosa, palate,. Good dentition. NECK: Supple, with no masses. CV: Tachycardia to 116, S1, S2 without murmur. LLE pitting edema. +1 pedal pulse. LUNGS: CTAB, no w/r/c. ABD: Soft, NT/ND, NBS, no masses or organomegaly. : N/A SKIN: Warm, well perfused. pinpoint red rash to medial left ankle. MSK: No deformities, Normal gait. EXT: No clubbing, cyanosis, or edema. NEURO: Ambulating with no limitations. Normal muscle strength and tone. No focal deficits. Principal Diagnosis Acute deep vein thrombosis Hypertension Discharge Data Allergies Allergy/AdvReac Type Severity Reaction Status Date / Time No Known Allergies Allergy Unverified 12/04/24 16:10 Consultations 12/04/24 15:48 ED Decision to Admit Stat Procedures Performed Laboratory Results WBC 6.41 K/ul (4.8-10.8) 12/05/24 07:26 RBC 5.42 M/uL (4.70-6.10) 12/05/24 07:26 Hgb 16.0 g/dl (14.0-18.0) 12/05/24 07:26 POC Hgb 16.3 g/dl (14.0-18.0) 12/04/24 15:09 Hct 46.0 % (42.0-52.0) 12/05/24 07: POC Hct 48 % (42-52) 12/04/24 15:09 MCV 84.9 fL (80.0-100.0) 12/05/24 07: MCH 29.5 pg (25.0-34.0) 12/05/24 07: MCHC 34.8 g/dL (32.0-36.0) 12/05/24 07: RDW Std Deviation 40.6 fL (36.4-46.3) 12/05/24: RDW Coeff of [place] 13.1 % (11.5-14.5) 12/05/24 07: Plt Count 229 K/uL (130-400) 12/05/24 07: MPV 8.9 fL (9.4-12.4) L 12/05/24 07: Immature Gran % (Auto) 0.7 % 12/04/24 15:07 Neut % (Auto) 75.1 % 12/04/24 15:07 Lymph % (Auto) 16.0 % 12/04/24 15:07 Hodgeman % (Auto) 5.2 % 12/04/24 15:07 Eos % (Auto) 2.3 % 12/04/24 15:07 Baso % (Auto) 0.7 % 12/04/24 15:07 Neut # (Auto) 4.60 K/uL (1.40-6.50) 12/04/24 15:07 Lymph # (Auto) 0.98 K/uL (1.20-3.40) L 12/04/24 15:07 Hodgeman # (Auto) 0.32 K/uL (0.11-0.59) 12/04/24 15:07 Eos # (Auto) 0.14 K/uL (0.00-0.50) 12/04/24 15:07 Baso # (Auto) 0.04 K/uL (0.00-0.20) 12/04/24 15:07 Immature Gran # (Auto) 0.04 K/uL (0.01-0.20) 12/04/24 15:07 PT 10.0 Seconds (9.0-12.0) 12/04/24 15:07 INR 0.9 (0.9-1.1) 12/04/24 15:07 APTT 23 Seconds (21-31) 12/04/24 15:07 PTT Ratio 0.8 12/04/24 15:07 Heparin Anti-Xa, Unfract < 0.10 IU/ml (0.3-0.7) L 12/04/24 22:06 POC Sodium 139 mmol/L (135-144) 12/04/24 15:09 Sodium 138 mmol/L (136-145) 12/05/24 07:26 POC Potassium 4.0 mmol/L (3.3-5.0) 12/04/24 15:09 Potassium 4.1 mmol/L (3.5-5.1) 12/05/24 07:26 POC Chloride 100 mmol/L (101-112) L 12/04/24 15:09 Chloride 104 mmol/L (98-107) 12/05/24 07:26 Carbon Dioxide 26 mmol/L (21-32) 12/05/24 07:26 POC Total CO2 26 mmol/L (24-31) 12/04/24 15:09 Anion Gap 8 (3-11) 12/05/24 07:26 POC Anion Gap 19.0 mmol/L (16-25) 12/04/24 15:09 POC BUN 10 mg/dl (7-18) 12/04/24 15:09 BUN 11 mg/dl (6-23) 12/05/24 07:26 Creatinine 0.77 mg/dl (0.6-1.4) 12/05/24 07:26 POC Creatinine 1.0 mg/dl (0.6-1.3) 12/04/24 15:09 Est Cr Clr Drug Dosing 130.8 ml/min 12/05/24 07:26 eGFR 120.48 12/05/24 07:26 BUN/Creatinine Ratio 14.3 (10-20) 12/05/24 07:26 Glucose 104 mg/dl (70-99(Fasting)) H 12/05/24 07:26 POC Glucose (other) 153 mg/dl (70-99) H 12/04/24 15:09 Calcium 9.3 mg/dl (8.6-10.3) 12/05/24 07:26 POC Ioniz Calcium Quintin 1.27 mmol/l (1.12-1.32) 12/04/24 15:09 Phosphorus 3.3 mg/dl (2.5-4.9) 12/05/24 07:26 Magnesium 1.9 mg/dl (1.7-2.4) 12/05/24 07:26 Troponin I High Sens 4.3 pg/ml (0-20) 12/04/24 15:07 Lipase 11 U/L (11-82) 12/04/24 15:07 Impressions Chest CTA 12/04/24 14:40 CT ANGIOGRAM OF THE CHEST CLINICAL HISTORY: Chest pain. COMPARISON STUDY: Chest x-ray dated 07/06/2012. Chest CT dated 07/06/2012. TECHNIQUE: Following the IV administration of 118 cc of Optiray 320, CT angiogram of the chest was performed from the upper abdomen to the thoracic inlet utilizing the pulmonary embolus protocol. Images are reviewed in the axial, sagittal, and coronal planes. 3-D MIPS images are created and assessed. IV contrast was administered without complication. A dose lowering technique was utilized adhering to the principles of ALARA. The examination is degraded by motion artifact. CT DOSE: 556.69 mGy.cm FINDINGS: Thyroid: Imaged portions of the thyroid gland are normal in size and attenuation. Thoracic aorta: The thoracic aorta is normal in caliber and demonstrates standard 3-vessel arch anatomy. No dissection is seen. Pulmonary vasculature: The pulmonary trunk is normal in caliber. There are no c entral filling defects identified in main or lobar pulmonary branches to suggest pulmonary embolus. The segmental and subsegmental branches cannot be assessed due to severe motion artifact. Heart: The heart is normal in size and without pericardial effusion. Lungs and pleural spaces: Evaluation of the lung parenchyma is significantly degraded by motion artifact. No airspace consolidation or pleural effusion is identified. The trachea and central airways appear clear. Atelectasis is noted at the lung bases. There are several calcified granulomas. Mediastinum: There is no mediastinal lymphadenopathy. Oliva: Clear. Axillae: There is no axillary lymphadenopathy. Upper abdomen: Partially visualized upper abdominal viscera is within normal limits. Skeletal structures: No lytic or blastic bony lesions are seen. IMPRESSION: 1. Severely motion compromised examination. 2. There is no evidence of central pulmonary embolus in the main or lobar pulmonary arteries. The segmental and subsegmental branches cannot be assessed due to the degree of motion 3. No airspace consolidation or pleural effusion is identified. 4. Additional findings as above. ACT 112: Negative or not required by law. Electronically signed by: Adalberto Doe M.D. 12/04/2024 3:45 PM Ordered Studies 12/04/24 14:40 CT angio chest PE protocol Stat Hospital Course (1) DVT (deep venous thrombosis): Patient is a 34 year old M with a past medical history of anxiety, pericarditis, rubella with defects, hearing impaired with cochlear implant, presenting with left lower extremity swelling. Symptoms began several weeks ago with left leg swelling and pain w/o ambulation difficulty. No fevers or reported injury to left leg. Was seen by Dr[facility] in [place] and treated with antibiotics for suspected cellulitis. Patient returned to Dr. Berger's clinic 1-2 week ago d/t no improvement, left leg pain persisted. Then prescribed Doxycycline w/ last dose given 11/30. Went to primary care follow-up at [facility], per Dr. Berger[facility] clinic for ultrasound follow-up after antibiotics, Doppler showing DVT from femoral- popliteal. DVT, acute Outpatient Doppler study showed left lower deep vein thrombosis femoral to popliteal +Family history Factor V Leiden (father) --Chest CTA:Severely motion compromised examination. There is no evidence of central pulmonary embolus in the main or lobar pulmonary arteries. The segmental and subsegmental branches cannot be assessed due to the degree of motion. No airspace consolidation or pleural effusion is identified. 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; now with cognitive impairment requiring family support with everyday care Continue home Seroquel DVT Px: Eliquis Code status: Full Code Disposition Home (2) Hypertension: (3) Anxiety: Total Time Total Time Spent Total Time Spent (In Minutes): 52 minutes Discharge Plan Discharge Items Patient Disposition: Home - Self-Care Reason For Visit: DVT Discharge Diagnosis: Acute deep vein thrombosis Hypertension Condition on Discharge: Serious Activity: Per Instructions section Exercise/Sports: Wait until after follow-up appointment Non-emergency contact: Primary Care Provider Call non-emergency contact if: you have any medication questions, your symptoms worsen, your pain is concerning for you and you have a fever Follow-up/Referrals: PCP,NO [Primary Care Provider] - Diet: Regular Addtl Attending Provider Instructions: -- Follow-up with your primary care physician in 1 week -- Your hypercoagulable workup is pending at the time of discharge. Follow-up with your physician for results and further recommendations regarding long-term anticoagulation with Eliquis. --Start taking apixaban (Eliquis) 10 mg twice a day for 6 more days and then take 5 mg twice a day. Duration of anticoagulation with Eliquis to be determined by your primary care physician. --Start taking amlodipine 5 mg daily for better control of your blood pressure. -- Monitor your blood pressure regularly as advised. Discuss with your physician for further recommendations for blood pressure management. Seek immediate medical attention if your symptoms reoccur or worsen Please review medication list provided on discharge for any medication changes as instructed. Please call if you have any questions or problems. You can reach a [facility] hospitalist on duty at [facility] 24 hours a day by calling [phone] Pending Studies at Discharge: Yes Studies:: Hypercoagulable workup Stand-Alone Forms: [facility], Smoking Cessation Medications and DC Order Prescriptions: New Eliquis 5 mg (74 tabs) tablets,dose pack 5 mg PO UD Qty: 74 2RF Rx Instructions: Start taking apixaban (Eliquis) 10 mg twice a day for 6 more days and then take 5 mg twice a day. amlodipine 5 mg Tablet 5 mg PO QAM Qty: 30 1RF Continued clonidine HCl 0.1 mg tablet 0.1 mg PO HS quetiapine 50 mg tablet 50 mg PO HS Discharge Orders: Discharge Order (Routine); Ordered 12/05/24 Ordered By: Alan Alvarado Admission Data Admit Date/Time: 12/04/24 16:59 Attending Provider: Alan Alvarado Admit Provider: Bennie Augustin Primary Care Provider: PCP,NO Other Providers: Bennie Augustin
--- NOTE | 2024-12-06 23:01 | Electrocardiogram Report ---
Test Reason : Blood Pressure : */* mmHG Vent. Rate : 122 BPM Atrial Rate : 122 BPM P-R Int : 194 ms QRS Dur : 72 ms QT Int : 288 ms P-R-T Axes : 49 59 61 degrees QTcB Int : 410 ms Sinus tachycardia Otherwise normal ECG No previous ECGs available Confirmed by Emerson Cleary ([id number]) on 12/06/2024 11:00:50 PM Referred By: REFERRED SELF Confirmed By: Emerson Cleary
[2024-12-10 18:19] LABS: Factor 5 Mutation POSITIVE
== END 2024-12-05 15:23 | disposition home or self-care (01) ==
LOC: ED 14:18 → 3N 14:18 → SUATTDRO 16:59 → 3N 18:39